=== PATIENT | female | born 1960 | race Caucasian/White ===

== ENCOUNTER 2022-05-02 14:43 | Inpatient (IN) | payer BC, OTHER ==
[~2022-05-02] VITALS: Ht 170.2 cm; Wt 66.0 kg
[~2022-05-02 14:43] MED LIST: IBUP800 PO
[2022-05-02 17:24] LABS: Bun/Creatinine Ratio 24.8 (12.0-20.0); Calcium, Blood 9.3 mg/dL (8.5-10.1); Creatinine, Blood 0.89 mg/dL (0.40-1.00); Potassium, Blood 3.9 mmol/L (3.5-5.5)
[2022-05-02 17:40] LABS: BASOPHILS ABSOLUTE AUTO 0.09 K/mm3 (0.00-0.23); BASOPHILS PERCENT AUTO 1 % (0-2); EOSINOPHILS ABSOLUTE AUTO 0.01 K/mm3 (0.00-0.68); EOSINOPHILS PERCENT AUTO 0 % (0-6); Hematocrit 43.6 % (33.0-51.0); Hemoglobin 14.4 g/dL (11.5-16.0); IMMATURE GRAN ABSOLUTE AUTO 0.13 K/mm3 (0.00-0.10); IMMATURE GRAN PERCENT AUTO 1 % (0-1); LYMPHOCYTES ABSOLUTE AUTO 0.91 K/mm3 (0.84-5.20); LYMPHOCYTES PERCENT AUTO 5 % (21-46); MONOCYTES ABSOLUTE AUTO 1.24 K/mm3 (0.16-1.47); MONOCYTES PERCENT AUTO 6 % (4-13); Mean Corpuscular HGB 30.6 pg (26.0-34.0); Mean Corpuscular Volume 93 fL (80-100); Mean Platelet Volume 8.8 fL (9.1-12.4); NEUTROPHILS ABSOLUTE AUTO 17.45 K/mm3 (1.96-9.15); NEUTROPHILS PERCENT AUTO 88 % (41-73); Platelet Count 309 K/mm3 (150-400); RDW Coefficient Variation 12.7 % (11.7-14.2); RDW Standard Deviation 43.6 fL (35.1-46.3); White Blood Cell Count 19.83 K/mm3 (4.00-11.30)
[2022-05-02] MEDS ORDERED: Prinivil10 MG PO (19:22)
[2022-05-03 01:43] LABS: Influenza A, PCR NEGATIVE (NEGATIVE); Influenza B, PCR NEGATIVE (NEGATIVE); Resp Syncytial Virus, PCR NEGATIVE (NEGATIVE); SARS-Cov-2 (COVID-19) PCR, MMC NEGATIVE (NEGATIVE)
[2022-05-03 04:19] LABS: BASOPHILS ABSOLUTE AUTO 0.05 K/mm3 (0.00-0.23); BASOPHILS PERCENT AUTO 1 % (0-2); EOSINOPHILS ABSOLUTE AUTO 0.02 K/mm3 (0.00-0.68); EOSINOPHILS PERCENT AUTO 0 % (0-6); Hematocrit 36.4 % (33.0-51.0); Hemoglobin 11.7 g/dL (11.5-16.0); IMMATURE GRAN ABSOLUTE AUTO 0.02 K/mm3 (0.00-0.10); IMMATURE GRAN PERCENT AUTO 0 % (0-1); LYMPHOCYTES PERCENT AUTO 19 % (21-46); MONOCYTES ABSOLUTE AUTO 0.96 K/mm3 (0.16-1.47); MONOCYTES PERCENT AUTO 10 % (4-13); Mean Corpuscular HGB 30.2 pg (26.0-34.0); Mean Corpuscular HGB Conc 32.1 g/dL (31.5-36.5); Mean Corpuscular Volume 94 fL (80-100); Mean Platelet Volume 8.9 fL (9.1-12.4); NEUTROPHILS ABSOLUTE AUTO 7.14 K/mm3 (1.96-9.15); NEUTROPHILS PERCENT AUTO 71 % (41-73); Platelet Count 282 K/mm3 (150-400); RDW Coefficient Variation 12.8 % (11.7-14.2); Red Blood Cell Count 3.88 M/mm3 (3.80-5.20); White Blood Cell Count 10.09 K/mm3 (4.00-11.30)
[2022-05-03 04:33] LABS: International Normalized Ratio 1.1; Prothrombin Time Results 11.5 Sec (9.7-11.5)
[2022-05-03 04:40] LABS: Albumin, Blood 2.9 g/dL (3.4-5.0); Bilirubin, Total 0.4 mg/dL (0.1-1.0); Bun/Creatinine Ratio 24.6 (12.0-20.0); Calcium, Blood 8.5 mg/dL (8.5-10.1); Creatinine, Blood 0.89 mg/dL (0.40-1.00); Globulin, Blood 2.9 g/dL (2.2-4.0); Potassium, Blood 3.8 mmol/L (3.5-5.5); Total Protein, Blood 5.8 g/dL (6.4-8.2)
--- NOTE | 2022-05-03 07:46 | NUR ---
SHIFT SUMMARY: JI IS A&OX4. VSS, NO ACUTE EVENTS OVERNIGHT. SPLINT IN PLACE TO PHANI, PT REPORTS INCREASED SWELLING ABOVE HER LEFT COLLARBONE THIS MORNING, BRUISING NOTED. SPLINT TO LLE C/D&I. IV TO R AC PATENT. SHE WAS MADE NPO AT MIDNIGHT. SHE REPORTS ADEQUATE PAIN CONTROL WITH MG OF DILAUDID. SHE IS LYING IN BED WITH THE CALL LIGHT IN REACH. REPORT GIVEN TO DAY SHIFT RN.
--- NOTE | 2022-05-03 11:10 | NUR ---
PT SURGERY CANCELED DO TO EMERGENCY SURGERY ICU PT. PT AGREES TO HAVE SURGERY TOMORROW 05/04/[address] LOCKE.
--- NOTE | 2022-05-03 19:11 | NUR ---
SHIFT SUMMARY L ANKLE FX, SURGERY WAS POSTPONED R/T EMERGENCY, REGULAR DIET GIVEN FOR TODAY WITH PLANS TO DO SURGERY TOMORROW. PAIN WELL MANAGED PER EMAR, TOLERATED PO INTAKE, ONE BOUT OF NAUSEA TODAY WHICH WAS RESOLVED WITH ZOFRAN. PT UPDATED ON PLAN OF CARE. NO ACUTE EVENTS THIS SHIFT, CALL LIGHT IN REACH, REPORT GIVEN TO IGNACIA RN.
--- NOTE | 2022-05-03 19:28 | NUR ---
RECIEVED REPORT AND ASSUMED CARE OF PT. SHE IS LYING IN BED WATCHING TV AND ENJOYING A SNACK OF JELLO. REPORTS PAIN WELL CONTROLLED AND DENIES ANY NEEDS AT THIS TIME. CALL LIGHT IN REACH.
[2022-05-04 05:29] LABS: BASOPHILS ABSOLUTE AUTO 0.05 K/mm3 (0.00-0.23); BASOPHILS PERCENT AUTO 0 % (0-2); EOSINOPHILS PERCENT AUTO 0 % (0-6); Hematocrit 34.1 % (33.0-51.0); Hemoglobin 11.2 g/dL (11.5-16.0); IMMATURE GRAN ABSOLUTE AUTO 0.07 K/mm3 (0.00-0.10); IMMATURE GRAN PERCENT AUTO 1 % (0-1); LYMPHOCYTES PERCENT AUTO 7 % (21-46); MONOCYTES ABSOLUTE AUTO 1.09 K/mm3 (0.16-1.47); MONOCYTES PERCENT AUTO 7 % (4-13); Mean Corpuscular HGB 30.7 pg (26.0-34.0); Mean Corpuscular HGB Conc 32.8 g/dL (31.5-36.5); Mean Corpuscular Volume 93 fL (80-100); NEUTROPHILS ABSOLUTE AUTO 12.79 K/mm3 (1.96-9.15); NEUTROPHILS PERCENT AUTO 85 % (41-73); Platelet Count 222 K/mm3 (150-400); RDW Coefficient Variation 12.7 % (11.7-14.2); RDW Standard Deviation 43.6 fL (35.1-46.3); Red Blood Cell Count 3.65 M/mm3 (3.80-5.20)
[2022-05-04 05:53] LABS: Albumin, Blood 2.6 g/dL (3.4-5.0); Anion Gap 6 mmol/L (6-16); Blood Urea Nitrogen 14 mg/dL (8-24); Bun/Creatinine Ratio 18.3 (12.0-20.0); CO2, Blood 25 mmol/L (21-32); Calcium, Blood 8.5 mg/dL (8.5-10.1); Chloride, Blood 108 mmol/L (98-108); Creatinine, Blood 0.76 mg/dL (0.40-1.00); Glomerular Filtration Rate 87 (60-); Glucose, Blood 120 mg/dL (70-99); Phosphorus, Blood 1.6 mg/dL (2.5-4.9); Potassium, Blood 3.8 mmol/L (3.5-5.5); Sodium, Blood 139 mmol/L (136-145)
--- NOTE | 2022-05-04 06:49 | NUR ---
SHIFT SUMMARY: JI IS A&OX4. VSS, NO ACUTE EVENTS OVERNIGHT. SHE WAS MADE NPO AT MIDNIGHT. SLING IN PLACE TO KYRIE, SPLINT TO LLE IN PLACE (WAS PARTIALLY CUT IN PREPARATION FOR SURGERY YESTERDAY WHICH HAD TO BE POSTPONED D/T EMERGENCIES). SHE USES THE CALL LIGHT APPROPRIATELY, USES THE BEDPAN WITH ASSISTANCE, AND WAS TOLERATING PO INTAKE WELL PRIOR TO BEING MADE NPO. SHE REPORTS ADEUQATE PAIN CONTROL WITH 0.5 MG DILAUDID. SHE IS LYING IN BED WITH THE CALL LIGHT IN REACH. WILL REPORT TO DAY SHIFT RN.
--- NOTE | 2022-05-04 09:47 | NUR ---
PT TAKEN TO DAY SURGERY.
--- NOTE | 2022-05-04 13:25 | NUR ---
POST OP S/P ORIF L TIBIA BY DR. ARIAS, PT AWAKE, A&OX4, LLE NOTED ELEVATED ON PILLOWS, MAURICIO WRAP AND SPLINT INTACT, DENIES ANY NUMBNESS OR TINGLING, ABLE TO WIGGLE TOES, DENIES ANY PAIN AT THIS TIME, PT VOMITTED ABOUT 50CC DARK GREEN EMESIS, ZOFRAN GIVEN, LUNGS CLEAR, HRR, ACTIVE BT'S X4, DENIES ANY SOB, PT ON 2L O2 VIA NC, ENCOURAGED COUGHING AND DEEP BREATHING, IS GIVEN W/ INSTRUCTIONS ON USE, CONT. TO MONITOR FOR ANY CHANGES.
--- NOTE | 2022-05-04 17:53 | NUR ---
SUMMARY S/P ORIF L TIBIA, POD0, A&OX4, MEDICATED ONCE FOR PAIN WITH NORCO, CURRENTLY RATES PAIN AT 310, LLE W/ SPLINT AND MAURICIO WRAP, C/D/I, NEURO CHECKS INTACT, SLEPT MOST OF THE AFTERNOON POST OP, VSS, OOB TO RECLINER CHAIR LATER IN THE AFTERNOON, AND FOR DINNER, TRANSFERS TO [facility] W/ 1 PERSON ASSIST, TOLERATED FAIRLY WELL, HAD NAUSEA EARLIER TODAY AND VOMITTED X2, MEDICATED WITH ZOFRAN PER EMAR, CURRENTLY DENIES ANY N/V AND TOLERATED REGULAR DINNER WELL, NO ACUTE CHANGES THIS SHIFT.
[2022-05-05 04:31] LABS: BASOPHILS ABSOLUTE AUTO 0.03 K/mm3 (0.00-0.23); BASOPHILS PERCENT AUTO 0 % (0-2); EOSINOPHILS ABSOLUTE AUTO 0.01 K/mm3 (0.00-0.68); EOSINOPHILS PERCENT AUTO 0 % (0-6); Hematocrit 29.3 % (33.0-51.0); Hemoglobin 9.6 g/dL (11.5-16.0); IMMATURE GRAN ABSOLUTE AUTO 0.04 K/mm3 (0.00-0.10); IMMATURE GRAN PERCENT AUTO 0 % (0-1); LYMPHOCYTES ABSOLUTE AUTO 1.53 K/mm3 (0.84-5.20); LYMPHOCYTES PERCENT AUTO 12 % (21-46); MONOCYTES ABSOLUTE AUTO 1.15 K/mm3 (0.16-1.47); MONOCYTES PERCENT AUTO 9 % (4-13); Mean Corpuscular HGB 30.5 pg (26.0-34.0); Mean Corpuscular HGB Conc 32.8 g/dL (31.5-36.5); Mean Corpuscular Volume 93 fL (80-100); Mean Platelet Volume 9.1 fL (9.1-12.4); NEUTROPHILS ABSOLUTE AUTO 9.65 K/mm3 (1.96-9.15); NEUTROPHILS PERCENT AUTO 78 % (41-73); Platelet Count 185 K/mm3 (150-400); RDW Coefficient Variation 12.8 % (11.7-14.2); RDW Standard Deviation 43.1 fL (35.1-46.3); Red Blood Cell Count 3.15 M/mm3 (3.80-5.20); White Blood Cell Count 12.41 K/mm3 (4.00-11.30)
[2022-05-05 04:47] LABS: Albumin, Blood 2.2 g/dL (3.4-5.0); Anion Gap 5 mmol/L (6-16); Blood Urea Nitrogen 22 mg/dL (8-24); Bun/Creatinine Ratio 22.7 (12.0-20.0); CO2, Blood 28 mmol/L (21-32); Calcium, Blood 7.8 mg/dL (8.5-10.1); Chloride, Blood 104 mmol/L (98-108); Creatinine, Blood 0.97 mg/dL (0.40-1.00); Glomerular Filtration Rate 65 (60-); Glucose, Blood 129 mg/dL (70-99); Phosphorus, Blood 2.7 mg/dL (2.5-4.9); Potassium, Blood 3.7 mmol/L (3.5-5.5); Sodium, Blood 137 mmol/L (136-145)
--- NOTE | 2022-05-05 06:29 | NUR ---
POD 1 S/P LLE ORIF. PT VSS T/O NIGHT. SPLINT CDI, CAP REFILL WNL, PT DENIED N/T. LUE IN SLING, PT DENIED N/T. PAIN MGD W/TYLENOL AND 0.5 NORCO TAB. PT REP N/V W/FULL TAB. PT UP OOB W/PLATFORM WALKER AND 1 ASSIST, IS DOING WELL W/TTWB. PT IS VOIDING URINE W/O DIFFICULTY.
--- NOTE | 2022-05-05 18:20 | NUR ---
WORKED W/ PT/OT TODAY, UP TO THE CHAIR MOST OF THE DAY, STATES PAIN CONTROL IS TOLERABLE WITH TYLENOL, PT DID REQUIRE 1/2 TAB OF NORCO ONCE TODAY, NWB ON LUE AND LLE, TOLERATING TRANSFERS TO BSC OR CHAIR WTIH 2 PERSON ASSIST AND A TARIK WALKER WELL, PT HAS BEEN DOING BED EXERCISES INSTRUCTED BY PT/OT, NEURO CHECKS INTACT, DC PLANNING FOR SNF PLACEMENT, NO ACUTE CHANGES THIS SHIFT.
[2022-05-06 04:50] LABS: BASOPHILS ABSOLUTE AUTO 0.06 K/mm3 (0.00-0.23); BASOPHILS PERCENT AUTO 1 % (0-2); EOSINOPHILS ABSOLUTE AUTO 0.05 K/mm3 (0.00-0.68); EOSINOPHILS PERCENT AUTO 1 % (0-6); Hematocrit 28.9 % (33.0-51.0); Hemoglobin 9.7 g/dL (11.5-16.0); IMMATURE GRAN ABSOLUTE AUTO 0.03 K/mm3 (0.00-0.10); IMMATURE GRAN PERCENT AUTO 0 % (0-1); LYMPHOCYTES PERCENT AUTO 24 % (21-46); MONOCYTES ABSOLUTE AUTO 0.86 K/mm3 (0.16-1.47); MONOCYTES PERCENT AUTO 10 % (4-13); Mean Corpuscular HGB 30.3 pg (26.0-34.0); Mean Corpuscular HGB Conc 33.6 g/dL (31.5-36.5); Mean Corpuscular Volume 90 fL (80-100); Mean Platelet Volume 9.3 fL (9.1-12.4); NEUTROPHILS ABSOLUTE AUTO 5.53 K/mm3 (1.96-9.15); NEUTROPHILS PERCENT AUTO 64 % (41-73); Platelet Count 242 K/mm3 (150-400); RDW Coefficient Variation 12.7 % (11.7-14.2); RDW Standard Deviation 41.9 fL (35.1-46.3); White Blood Cell Count 8.63 K/mm3 (4.00-11.30)
--- NOTE | 2022-05-06 06:41 | NUR ---
POD 2 S/P LLE ORIF. PT VSS. DRESSING CDI, CAP REFILL WNL. PT DENIES N/T. LUE IN SLING. PT DOING WELL W/NWB STATUS ON LEFT SIDE, IS USING TARIK WALKER +2 ASSIST. PAIN MGD W/TYLENOL OR 1 NORCO W/REP RELIEF. PLAN TO MOBILIZE W/PT AND AWAIT DC PLANNING.
--- NOTE | 2022-05-06 12:01 | NUR ---
LATE ENTRY - visit 05/05/22 Pt. is awake and welcomes my visit. Pt. is pleasant and rapport is established. Pt. has a alina background but has not been active since she was a youth. Listened with a calming presence. Pt. displayed evidence of trust and engagement. Prayed with Pt. Pt. verbalized gratitude for the spiritual care visit.
--- NOTE | 2022-05-06 17:47 | NUR ---
SHIFT SUMMARY POD 2 ORIF L LEFT LEG WHICH IS NWB, IN A SPLINT WITH MAURICIO WRAP OVER, C/D/I. PATIENT ALSO HAS LEFT CLAVICLE FRACTURE, LEFT ARM IN SLING AND IS ALSO NWB. VSS ON RA THROUGHOUT SHIFT. UP TO BSC WITH TARIK WALKER & GB, TOLERATING WELL. EATING, DRINKING, & VOIDING WELL. MINIMAL PAIN THROUGHOUT SHIFT, MANAGED PER EMAR. AWAITING SNF FOR DISCHARGE. CALLS APPROPRIATELY. WILL REPORT TO ONCOMING RN.
--- NOTE | 2022-05-07 07:42 | NUR ---
POD 3 S/O LLE ORIF. PT VSS T/O NIGHT. SPLINT CDI, CAP REFILL WNL, PT DENIED N/T. LUE IN SLING, PT HAS GOOD BOARD OPERATOR, DENIED N/T, PULSE STRONG. PT MED FOR PAIN X1, DENIED NEED FOR ADDITIONAL PAIN MEDS. PT UP W/TARIK WALKER W/1 ASSIST, IS DOING WELL W/NWB. PLAN FOR DC TO SNF.
--- NOTE | 2022-05-07 13:13 | NUR ---
PATIENT HAS HAD NO ACUTE CHANGES THIS AM. POD 3 ORIF LEFT LEG, SPLINT & MAURICIO WRAP IN PLACE, C/D/I. LEFT ARM IS IN SLING D/T CLAVICLE FX. NWB LEFT SIDE. EATING, DRINKING, & VOIDING WELL. MINIMAL PAIN, MEDICATED WITH TYLENOL X1 PER EMAR. UP TO BSC W/ 1P ASSIST & TARIK WALKER, TOELRATING WELL. REPORT GIVEN TO MANSI REID.
--- NOTE | 2022-05-07 17:21 | NUR ---
ASSUMED CARE RECEIVED REPORT ON THE PATIENT AROUND 1300, PT STABLE AT THAT TIME. ROUNDED AND UPDATED PATIENT ON CHANGE OF HER PRIMARY NURSE FOR TODAY. NO NEEDS AT THIS TIME, WILL CTM.
--- NOTE | 2022-05-08 05:36 | NUR ---
SUMMARY NO NEW ISSUES NOTED. PT HAS MAINTAINED NO WEIGHTBEARING ON LEFT LEG. PT HAS SLEPT WELL T/OUT THE SHIFT.
--- NOTE | 2022-05-08 14:31 | NUR ---
SUMMARY: PT HAS DONE WELL TODAY, A/O, HTN NOTED, SEE NEW ORDERS. REPEAT BP BETTER THIS AFTERNOON. SURGICAL SITES WNL. PT ABLE TO WORK WITH THERAPY AND USED WHEELCHAIR INDEPENDENTLY IN [place], PT MOVING WELL WITH TARIK WALKER. PT HAD BM TODAY AND IS PASSING GAS. MINIMAL PAIN, PT DENIED NEEDING ANYTHING STRONGER THAN TYLENOL THIS MORNING. PLAN IS TO DC TO [facility] TODAY, COVID TEST COLLECTED AND AWAITING TRANSPORT NOW. REPORT PASSED TO MANSI REID.
[2022-05-08 16:00] LABS: SARS-Cov-2 (COVID-19) PCR, MMC NEGATIVE (NEGATIVE)
--- NOTE | 2022-05-08 17:06 | NUR ---
ASSUMED CARE @ 1400, REPORT RECEIVED FROM RAMON RN, PT IN STABLE CONDITION AT THAT TIME
--- NOTE | 2022-05-08 17:11 | NUR ---
DISCHARGE SUMMARY PT UPDATED ON PLAN FOR TIME OF DISCHARGE, NEW SPLINT APPLIED JUST PRIOR TO HER LEAVING BY SURGEON AND THIS RN. REPORT CALLED INTO [facility]. PATIENT PICKED UP BY [facility]ULANCE [facility] FOR TRANSIT.
== END 2022-05-08 16:35 | DRG 494 ==
LOC: ER 14:43 → SURS 16:49
PROVIDERS: Emergency Medicine; Family Medicine; Internal Medicine; Orthopaedic Surgery; ADMIT Internal Medicine
PROC: 0QSH04Z Reposition Left Tibia with Internal Fixation Device, Open Approach (ICD-10-PCS; 2022-05-04)
PROC: 0QSK04Z Reposition Left Fibula with Internal Fixation Device, Open Approach (ICD-10-PCS; principal; 2022-05-04 10:30)
DX: S82.832A Other fracture of upper and lower end of left fibula, initial encounter for closed fracture (principal); S42.002A Fracture of unspecified part of left clavicle, initial encounter for closed fracture; D50.9 Iron deficiency anemia, unspecified; D72.829 Elevated white blood cell count, unspecified; S89.192A Other physeal fracture of lower end of left tibia, initial encounter for closed fracture; I10 Essential (primary) hypertension; F17.210 Nicotine dependence, cigarettes, uncomplicated; E88.09 Other disorders of plasma-protein metabolism, not elsewhere classified; F41.9 Anxiety disorder, unspecified; Z20.822 Contact with and (suspected) exposure to COVID-19; Z98.890 Other specified postprocedural states; Z88.0 Allergy status to penicillin; Z79.899 Other long term (current) drug therapy; V80.010A Animal-rider injured by fall from or being thrown from horse in noncollision accident, initial encounter; Y93.52 Activity, horseback riding
CPT/HCPCS: 0241U; 29505; 36415; 73030; 73590; 73610; 73700; 80048; 80053; 80069; 82728; 83540; 83550; 85025; 85610; 93005; 93010; 94760; 96374-59; 96375-59; 97110; 97162; 97166; 97530; 97535; 99285-25; A9270; C1713; C1769; J1170; J1650; J1885; J2250; J2270; J2405; J2704; J3010; J7030; J7060; J7120; U0004